=== PATIENT | male | born 1955 | race Caucasian/White ===

== ENCOUNTER → 2017-02-18 | Outpatient (CLI) | payer OTHER ==
[2017-02-18 09:40] LABS: BASO % 0.2 %; BASO ABS # 0.01 K/uL (0-0.2); COMPLETE YES; EOS % 1.7 %; HEMATOCRIT 44.4 % (42-52); IG% 0.4 %; LYMPH % 29.4 %; MEAN CELL VOLUME 87.2 fL (80-100); MEAN CORPUSCULAR HEMOGLOBIN 30.6 pg (25-34); MEAN CORPUSCULAR HGB CONC 35.1 g/dl (32-36); MEAN PLATELET VOLUME 9.2 fL (7.4-10.4); MONO % 8.4 %; NEUT % 59.9 %; PLATELET COUNT 203 K/uL (130-400); RED BLOOD COUNT 5.09 M/uL (4.7-6.1); WHITE BLOOD COUNT 5.45 K/uL (4.8-10.8)
[2017-02-18 10:03] LABS: ALT/SGPT 27 U/L (12-78); AST/SGOT 20 U/L (15-37); BLOOD UREA NITROGEN 12 mg/dl (7-18); BUN/CREATININE RATIO 12.4 (10-20); CARBON DIOXIDE 29 mmol/L (21-32); CHLORIDE 108 mmol/L (98-107); GLUCOSE 94 mg/dl (70-99); POTASSIUM 3.9 mmol/L (3.5-5.1); SODIUM 141 mmol/L (136-145)
[2017-02-18 10:05] LABS: ALB/GLOB RATIO 1.2 (0.9-2); ALKALINE PHOSPHATASE 80 U/L (45-117); CHOLESTEROL 99 mg/dl (0-200); CHOLESTEROL/HDL RATIO 2.2; HDL CHOLESTEROL 45 mg/dl; LDL CHOLESTEROL CALCULATED 40 mg/dl; TRIGLYCERIDES 71 mg/dl (0-150); VERY LOW DENSITY LIPOPROT CALC 14 mg/dl
== END | disposition home or self-care (01) ==
LOC: C.LAB1850 08:14
PROVIDERS: ATTEND Internal Medicine
DX: Z00.00 Encounter for general adult medical examination without abnormal findings (principal); Z11.59 Encounter for screening for other viral diseases; E78.5 Hyperlipidemia, unspecified; I10 Essential (primary) hypertension; G56.00 Carpal tunnel syndrome, unspecified upper limb

== ENCOUNTER → 2017-06-19 | Outpatient (CLI) | payer OTHER | END | disposition home or self-care (01) | LOC: C.CPL 09:04 | PROVIDERS: ATTEND Orthopaedic Surgery Sports Medicine | DX: Z01.810 Encounter for preprocedural cardiovascular examination (principal); M23.321 Other meniscus derangements, posterior horn of medial meniscus, right knee ==